=== PATIENT | male | born 1950 | race American Indian/Alaskan Native ===

== ENCOUNTER 2020-07-21 09:17 | Emergency (ER) | payer MEDICARE ==
[2020-07-21 09:43] VITALS: BP 158/85
--- NOTE | 2020-07-21 12:34 | Emergency Department Report ---
ED General Adult HPI - General Chief complaint: Headache Stated complaint: HEADACHE Time Seen by Provider: 07/21/20 11:37 Source: EMS Mode of arrival: Ambulatory Limitations: No Limitations - History of Present Illness Initial comments: 69-year-old F [place] male with past medical history of hypertension currently resides at a assisted presents to emergency department with no reported complaints. States he does not have a headache he denies any chest pain or have any shortness of breath no fever, chills, sweats not suicidal not homicidal and he feels normal and would like to be released from the hospital. ED Review of Systems ROS: Stated complaint: HEADACHE Other details as noted in HPI Comment: All other systems reviewed and negative ED Past Medical Hx - Past Medical History Previous Medical History?: Yes Hx Hypertension: Yes Hx Seizures: Yes - Surgical History Past Surgical History?: No - Social History Smoking Status: Never Smoker ED Physical Exam - General Limitations: No Limitations General appearance: alert, in no apparent distress - Head Head exam: Present: atraumatic - Eye Eye exam: Present: normal appearance - ENT ENT exam: Present: normal exam - Neck Neck exam: Present: normal inspection - Respiratory Respiratory exam: Present: normal lung sounds bilaterally - Cardiovascular Cardiovascular Exam: Present: regular rate, normal rhythm - Extremities Exam Extremities exam: Present: normal inspection, full ROM - Neurological Exam Neurological exam: Present: alert, oriented X3, CN II-XII intact - Psychiatric Psychiatric exam: Present: normal affect, normal mood. Absent: homicidal ideation, suicidal ideation - Skin Skin exam: Present: warm, intact ED Course Vital Signs 07/21/20 09:28 Temperature 97.8 F Pulse Rate 60 Respiratory 17 Rate Blood Pressure 158/85 O2 Sat by Pulse 99 Oximetry ED Medical Decision Making - Medical Decision Making 39-year-old male alert and oriented x3 sound of sound judgment he reports no complaints to be evaluated states that he feels normal requesting to be discharged home. Magistrate Assistant Federico was at bedside during my interview as a witness. For several questions course all were denied for treatment if he requested again it was denied patient had a full understanding of what was going on and stated he would just would like to be discharged as he feels fine and reports never having any complaint. States that he was he was brought here by his trade sales assistant home for reasons unknown Critical care attestation.: If time is entered above; I have spent that time in minutes in the direct care of this critically ill patient, excluding procedure time. ED Disposition Clinical Impression: No complaints Disposition: DC-01 TO HOME OR SELFCARE Is pt being admited?: No Does the pt Need Aspirin: No Condition: Stable Referrals: PRIMARY CARE, [Primary Care Provider] - 3-5 Days
== END 2020-07-21 13:00 | disposition home or self-care (01) ==
LOC: ED 09:17
DX: R51.9 Headache, unspecified (principal); I10 Essential (primary) hypertension; Z86.69 Personal history of other diseases of the nervous system and sense organs
CPT/HCPCS: 99283